=== PATIENT | female | born 1990 | race Two or more races ===

== ENCOUNTER 2018-11-04 16:55 | Observation (INO) | payer OTHER ==
[~2018-11-04] VITALS: Ht 157.5 cm; Wt 65.8 kg
[2018-11-04] MEDS ORDERED: PREN-153 OR (17:29)
[2018-11-04] MEDS ORDERED: FOLI1TAB6 PO (17:29)
[2018-11-04 20:00] LABS: Alcohol, Urine < 3.0 mg/dL (0-5); Amphetamine Screen, Urine NEGATIVE (NEGATIVE); Barbiturate Scree,Urine NEGATIVE (NEGATIVE); Benzodiazephine Screen, Urine NEGATIVE (NEGATIVE); Cannabinoid Screen, Urine NEGATIVE (NEGATIVE); Cocaine Screen, Urine NEGATIVE (NEGATIVE); Opiate Scree,Urine NEGATIVE (NEGATIVE); Phencyclidine Screen, Urine NEGATIVE (NEGATIVE)
[2018-11-04 20:02] LABS: Urine Bacteria NONE SEEN /hpf (None Seen); Urine Blood Negative /uL (Negative); Urine Budding Yeast OCCASIONAL /hpf (None Seen); Urine Mucus FEW (None Seen); Urine Specific Gravity 1.015 (1.001-1.035); Urine WBC 12 /hpf (0 - 5)
== END 2018-11-04 20:49 | DRG 833 ==
LOC: LDRP 16:55
PROVIDERS: ADMIT Obstetrics & Gynecology; ATTEND Obstetrics & Gynecology
DX: O26.852 Spotting complicating pregnancy, second trimester (principal); O26.892 Other specified pregnancy related conditions, second trimester; R10.30 Lower abdominal pain, unspecified; Z3A.22 22 weeks gestation of pregnancy
CPT/HCPCS: 59025; 76805; 80307; 81001; 81002; G0378